=== PATIENT | male | born 1960 | race African-American/Black ===

== ENCOUNTER 2020-12-30 14:55 | Inpatient (IN) | payer OTHER ==
[2020-12-30 16:44] VITALS: BMI 22.1
[2020-12-30] MEDS ORDERED: MAG HYDROX/AL HYDROX/SIMETH 30 ML UNIT-DOSE CUP PO PRN (18:03)
[2020-12-30] MEDS ORDERED: MAGNESIUM HYDROX 2400MG/30ML ORAL SUSPENSION 30 ML CUP PO PRN (18:03)
[2020-12-30] MEDS ORDERED: MENTHOL/PHENOL 1 EACH UD MM PRN (18:03)
[2020-12-30] MEDS ORDERED: ACETAMINOPHEN 325 MG TABLET (FP) PO PRN ×2 (18:03)
[2020-12-30] MEDS ORDERED: IBUPROFEN 400 MG TABLET (FP) PO PRN (18:03)
[2020-12-30] MEDS ORDERED: ONDANSETRON *ODT* 4 MG TABLET SL PRN (18:03)
[2020-12-30] MEDS ORDERED: NICOTINE POLACRILEX 2 MG GUM BUC PRN (18:03)
[2020-12-30] MEDS ORDERED: METHOCARBAMOL 500 MG TABLET PO PRN (18:03)
[2020-12-30] MEDS ORDERED: MAGNESIUM CITRATE 300 ML BOTTLE PO PRN (18:03)
[2020-12-30] MEDS ORDERED: BISMUTH SUBSALICYLATE 524 MG/30 ML UD PO PRN (18:03)
[2020-12-30] MEDS: MELATONIN 5 MG TABLETS PO SCH (22:18)
[2020-12-30] MEDS: THIAMINE HCL 100 MG TABLET (FP) PO SCH (22:19)
[2020-12-31] MEDS ORDERED: chlordiazePOXIDE HCL 25 MG CAPSULE PO PRN (09:55)
[2020-12-31 10:26] LABS: POTASSIUM 4.1 mmol/L (3.5-5.1)
[2020-12-31] MEDS: PRENATAL VITAMINS W/ FOLIC ACID TABLET (FP) PO SCH (10:27)
[2020-12-31] MEDS: NICOTINE 14 MG/24 HOURS TOPICAL PATCH TD SCH (10:27)
[2020-12-31 10:29] LABS: ALBUMIN 3.6 g/dl (3.4-5.0); BLOOD UREA NITROGEN 12.3 mg/dL (7-18); CALCIUM 9.7 mg/dL (8.5-10.1)
[2020-12-31 10:34] LABS: BILIRUBIN,TOTAL 1.2 mg/dL (0.2-1); TOT PROT 6.9 g/dl (6.4-8.2)
[2020-12-31 10:37] LABS: HEMATOCRIT 38.9 % (35.4-49); HEMOGLOBIN 12.6 GM/dL (11.7-16.9); MCHC 32.2 g/dl (32.0-35.9); MEAN CELL VOLUME 74.5 fl (80-96); MEAN PLT VOLUME 8.9 fl (7.5-11.1); PLATELET COUNT 250 K/MM3 (134-434); RBC 5.22 M/mm3 (4.00-5.60); RDW 15.5 % (11.9-15.9); WHITE BLOOD COUNT 3.6 K/mm3 (4.0-10.0)
[2020-12-31] MEDS: chlordiazePOXIDE HCL 25 MG CAPSULE PO SCH ×3 (11:32→22:19)
[2020-12-31] MEDS: ARIPiprazole 10 MG TABLET PO SCH (13:20)
[2020-12-31] MEDS: MELATONIN 5 MG TABLETS PO SCH (22:19)
[2020-12-31] MEDS: THIAMINE HCL 100 MG TABLET (FP) PO SCH (22:19)
[2021-01-01] MEDS: chlordiazePOXIDE HCL 25 MG CAPSULE PO SCH (06:29)
[2021-01-01] MEDS ORDERED: diazePAM 5 MG TABLET PO PRN (09:06)
[2021-01-01] MEDS: PRENATAL VITAMINS W/ FOLIC ACID TABLET (FP) PO SCH (10:13)
[2021-01-01] MEDS: NICOTINE 14 MG/24 HOURS TOPICAL PATCH TD SCH (10:13)
[2021-01-01] MEDS: ARIPiprazole 10 MG TABLET PO SCH (10:13)
[2021-01-01] MEDS: diazePAM 5 MG TABLET PO SCH ×3 (10:14→22:25)
[2021-01-01] MEDS: MELATONIN 5 MG TABLETS PO SCH (22:16)
[2021-01-01] MEDS: THIAMINE HCL 100 MG TABLET (FP) PO SCH (22:17)
[2021-01-02] MEDS ORDERED: chlordiazePOXIDE HCL 25 MG CAPSULE PO SCH (05:00)
[2021-01-02] MEDS: diazePAM 5 MG TABLET PO SCH ×4 (06:38→22:48)
[2021-01-02] MEDS: PRENATAL VITAMINS W/ FOLIC ACID TABLET (FP) PO SCH (09:47)
[2021-01-02] MEDS: ARIPiprazole 10 MG TABLET PO SCH (09:47)
[2021-01-02] MEDS: NICOTINE 14 MG/24 HOURS TOPICAL PATCH TD SCH (09:48)
[2021-01-02] MEDS: THIAMINE HCL 100 MG TABLET (FP) PO SCH (22:47)
[2021-01-02] MEDS: MELATONIN 5 MG TABLETS PO SCH (22:47)
[2021-01-03] MEDS ORDERED: chlordiazePOXIDE HCL 10 MG CAPSULE PO PRN
[2021-01-03] MEDS ORDERED: chlordiazePOXIDE HCL 10 MG CAPSULE PO SCH (05:00)
[2021-01-03] MEDS ORDERED: diazePAM 5 MG TABLET PO SCH (06:00)
[2021-01-03 10:00] VITALS: BP 116/69; PULSE 72; TEMP 98.3
[2021-01-03 10:06] LABS: SARS-CoV-2 NAA Not Detected (Not Detected)
[2021-01-03] MEDS: ARIPiprazole 10 MG TABLET PO SCH (10:19)
[2021-01-03] MEDS: NICOTINE 14 MG/24 HOURS TOPICAL PATCH TD SCH (10:19)
[2021-01-03] MEDS: PRENATAL VITAMINS W/ FOLIC ACID TABLET (FP) PO SCH (10:19)
[2021-01-03] MEDS ORDERED: cloNIDine HCL 0.1 MG TABLET PO PRN (10:34)
[2021-01-04] MEDS ORDERED: chlordiazePOXIDE HCL 10 MG CAPSULE PO SCH (05:00)
[2021-01-04] MEDS ORDERED: diazePAM 5 MG TABLET PO SCH (06:00)
[2021-01-05] MEDS ORDERED: chlordiazePOXIDE HCL 10 MG CAPSULE PO ONE (05:00)
[2021-01-05] MEDS ORDERED: diazePAM 5 MG TABLET PO ONE (06:00)
== END 2021-01-03 13:09 | disposition home or self-care (01) | DRG 774 ==
LOC: YASAS 14:55 → Y6N 18:10
PROVIDERS: ADMIT Allergy & Immunology; ATTEND Allergy & Immunology
PROC: HZ2ZZZZ Detoxification Services for Substance Abuse Treatment (ICD-10-PCS; principal; 2020-12-30)
DX: F10.230 Alcohol dependence with withdrawal, uncomplicated (principal); F14.20 Cocaine dependence, uncomplicated; F17.210 Nicotine dependence, cigarettes, uncomplicated; F19.282 Other psychoactive substance dependence with psychoactive substance-induced sleep disorder; F19.24 Other psychoactive substance dependence with psychoactive substance-induced mood disorder; F25.9 Schizoaffective disorder, unspecified; F32.9 Major depressive disorder, single episode, unspecified; I50.9 Heart failure, unspecified; J44.9 Chronic obstructive pulmonary disease, unspecified; Z56.0 Unemployment, unspecified; Z59.0 Homelessness; Z91.018 Allergy to other foods
CPT/HCPCS: 36415; 80053; 85027; 86780; 93005; 93010; C9803; U0003; U0005